=== PATIENT | male | born 1990 | race Caucasian/White ===

== ENCOUNTER → 2018-05-15 | Outpatient (CLI) | payer MEDICAID ==
[~2018-05-15] MED LIST: ALBUTEROL INHAL17 GM IH; ALDACTONE25 MG; AMITRIPTYLINE PO; AZITHROMYCIN 2250 MG PO; BENADRYL A12.5 MG/5; BENICAR40 MG; CARVEDILOL12.5 MG; DEXAMETHASONE4 MG; EMEND; HYDROCHLOROTHIA25 M2; LIDOCAINE; LORTABELXR PO; LOTENSIN20 MG; NEXIUM PO; NYSTATIN; PROTONIX40 M2; SYMBICORT80 MCG/4.1; ZOFRAN8 MG
== END ==
LOC: M.CT 05-14 09:30
DX: C85.91 Non-Hodgkin lymphoma, unspecified, lymph nodes of head, face, and neck (principal); R91.1 Solitary pulmonary nodule; R59.9 Enlarged lymph nodes, unspecified